=== PATIENT | female | born 1970 | race Caucasian/White ===

== ENCOUNTER → 2020-09-05 | Outpatient (CLI) | payer BC ==
[~2020-09-05] MED LIST: FLAGYL250 MG PO; SYNTHROID0.125 MG PO
== END | disposition home or self-care (01) ==
LOC: MAMMO 14:40
PROVIDERS: ATTEND Nurse Practitioner Primary Care
DX: Z12.31 Encounter for screening mammogram for malignant neoplasm of breast (principal)